=== PATIENT | female | born 1950 | race Caucasian/White ===

== ENCOUNTER 2022-05-23 23:23 | Emergency (ER) | payer SELFPAY ==
[2022-05-24 00:23] LABS: ANION GAP 9.9 mEq/L (7-13); CHLORIDE,CL 102 mmol/L (98-107); ESTIMATED GFR 75 mL/min (>=60); SODIUM,NA 142 mmol/L (136-145)
[2022-05-24] MEDS ORDERED: Albuterol/Ipratropium 3.0-0.5 MG/3 ML Neb Soln NEB ONE (03:13)
== END 2022-05-24 05:37 | disposition home or self-care (01) ==
LOC: DL.ED 23:23
DX: J44.1 Chronic obstructive pulmonary disease with (acute) exacerbation (principal)
CPT/HCPCS: 36415; 71045; 71250; 80053; 83735; 85025; 93005; 99285; J7620-GY